=== PATIENT | male | born 1950 | race Hispanic/Latino ===

== ENCOUNTER 2017-01-12 13:23 | Emergency (ER) | payer MEDICARE, MEDICAID ==
--- NOTE | 2017-01-12 14:37 | RAD ---
2 VIEW LEFT FEMUR: Date: 01/12/17 CLINICAL HISTORY: Fall with pain. FINDINGS: No evidence of fracture of the left femur. Knee joint and hip joint not reliably assessed on the bas is of this exam. There is prominent vascular calcification. IMPRESSION: No acute fracture of the left femur. POS: NO[facility]
--- NOTE | 2017-01-12 14:58 | RAD ---
LEFT HIP TWO VIEWS WITH FRONTAL AND LATERAL IMAGING 01/12/2017 HISTORY: Fall. Pain. COMPARISON: None. FINDINGS: The frontal radiograph is nondiagnostic secondary to motion. The frogleg lateral view demonstrates no obvious displaced fracture. The hip joint is not fully assessed on the frogleg lateral view. Th ere is extensive atherosclerotic calcification within the imaged left thigh. IMPRESSION: Markedly limited examination, especially the frontal view. If there is persistent concern for fract ure, the area of clinical concern could be best assessed via CT. POS: NOA
--- NOTE | 2017-01-12 15:01 | RAD ---
FRONTAL RADIOGRAPH PELVIS: DATE: 01/12/17. COMPARISON: None. HISTORY: Fall, pain. FINDINGS: The provided frontal radiograph of the pelvis is technically suboptimal. The pelvic ring and sacroi liac joints are not well assessed. No obvious displaced fracture is seen. Neither hip appears disl ocated. If symptoms persist, CT advised given limitations of this exam. IMPRESSION: Osteopenia. No obvious displaced fracture, but this study is significantly limited and, thus, if sy mptoms persist, CT recommended. POS: NOA
[2017-01-12] MEDS ORDERED: Ondansetron ODT 4 MG TAB ONE (16:57)
== END 2017-01-12 16:30 ==
LOC: MADERS 13:23
DX: S70.02XA Contusion of left hip, initial encounter (principal); F03.90 Unspecified dementia, unspecified severity, without behavioral disturbance, psychotic disturbance, mood disturbance, and anxiety; E11.9 Type 2 diabetes mellitus without complications; I12.0 Hypertensive chronic kidney disease with stage 5 chronic kidney disease or end stage renal disease; N18.6 End stage renal disease; F41.9 Anxiety disorder, unspecified; F32.9 Major depressive disorder, single episode, unspecified; Z79.891 Long term (current) use of opiate analgesic; Z79.899 Other long term (current) drug therapy; W19.XXXA Unspecified fall, initial encounter
CPT/HCPCS: 72170; 96372; J2270; Q0162

== ENCOUNTER 2017-10-23 13:54 | Outpatient (CLI) | payer MEDICARE, MEDICAID ==
[2017-10-23 14:45] LABS: Bilirubin Negative (Negative); Blood, Urine Moderate (Negative); Glucose, Urine (Dipstick) Negative (Negative); Leukocyte Moderate (Negative); Nitrite Negative (Negative); Protein, Urine (Dipstick) > or equal to 300 mg/dL (Neg-Trace); Urobilinogen 0.2 mg/dL (0.2-1.0); pH, Urine 7.5 (5.0-9.0)
[2017-10-23 14:52] LABS: Clarity Hazy (Clear)
[2017-10-23 14:54] LABS: Bacteria/HPF 3+ HPF (None Seen); Squamous Epithelial 0-3 HPF (0-3)
== END 2017-10-23 13:55 | disposition home or self-care (01) ==
LOC: MADLABBHPM 13:54
PROVIDERS: ATTEND Family Medicine
DX: N39.0 Urinary tract infection, site not specified (principal)
CPT/HCPCS: 36415; 81001; 87077; 87086

== ENCOUNTER 2017-12-06 14:52 | Emergency (ER) | payer MEDICARE, MEDICAID ==
--- NOTE | 2017-12-06 16:12 | CT ---
CT ABDOMEN AND PELVIS WITHOUT CONTRAST: Date: 12/06/17 HISTORY: Abdominal pain. Constipation due to opiates. COMPARISON: None. FINDINGS: Lung bases are clear. No pericardial effusion. Dense coronary artery calcifications. No significant pericardial effusion. Dense calcifications of aorta and solid organs and vessels. The kidneys are atrophic. The spleen is relatively unremarkable. No hydroureteronephrosis or nephroureterolithiasis. No signifi cant perinephric stranding. There are multiple too small to characterize hypodensities to both kidney s poorly evaluated without intravenous contrast. Mild paraspinal muscular atrophy. Moderate stool burden throughout the colon. There is motion artifact throughout the pelvis limited ev aluation for the osseous structures. Compression fracture is present at L1 with near complete anterio r height loss. This appears to be chronic. Multiple healing right posterior rib fractures. IMPRESSION: 1. No acute inflammatory process in the abdomen or pelvis. 2. Atrophic kidneys with numerous hypodensities incompletely evaluated. No evidence for calculi or r ecently passed stone. 3. Multiple healing right-sided posterior rib fractures. 4. Old compression deformity of the L1 vertebral body. POS: [facility]
[2017-12-06] MEDS ORDERED: HYDROcodone/Acetaminophen 5/325 mg Tablet ONE (16:16)
== END 2017-12-06 17:25 ==
LOC: MADERS 14:52
DX: K59.00 Constipation, unspecified (principal); M48.46XA Fatigue fracture of vertebra, lumbar region, initial encounter for fracture; E11.22 Type 2 diabetes mellitus with diabetic chronic kidney disease; E03.9 Hypothyroidism, unspecified; F32.9 Major depressive disorder, single episode, unspecified; F41.9 Anxiety disorder, unspecified; F03.90 Unspecified dementia, unspecified severity, without behavioral disturbance, psychotic disturbance, mood disturbance, and anxiety; I12.0 Hypertensive chronic kidney disease with stage 5 chronic kidney disease or end stage renal disease; G47.00 Insomnia, unspecified; N18.6 End stage renal disease; Z99.2 Dependence on renal dialysis; Z86.73 Personal history of transient ischemic attack (TIA), and cerebral infarction without residual deficits; Z79.899 Other long term (current) drug therapy
CPT/HCPCS: 74176

== ENCOUNTER 2018-06-25 13:28 | Outpatient (CLI) | payer MEDICARE, MEDICAID ==
--- NOTE | 2018-06-25 15:46 | CT ---
NONCONTRAST CT ABDOMEN AND PELVIS 06/25/18 HISTORY: Abdominal pain. Patient reports left lower quadrant pain for two days. COMPARISON: 12/06/17. FINDINGS: The small bilateral pleural effusions with associated passive atelectasis. There is mild elevation of the left hemidiaphragm. The heart is mildly enlarged. Vascular calcifications are seen in the visualized coronary arteries wi th dense atherosclerotic vascular calcifications involving the abdominal aorta and iliac arteries wit h prominent vascular calcifications involving the kidneys bilaterally. Calcified granulomas seen within the right hepatic lobe. There are hypodense lesions within each kidney stable from prior study which are difficult to furthe r characterize on this nonenhanced CT scan examination but may be attributable to renal cysts. The ki dneys are small in size bilaterally with renal cortical thinning present. The upper abdomen is limited due to artifact from patient's arms down by the side. The spleen, pancreas, and bilateral adrenal glands demonstrate a grossly normal nonenhanced CT appear ance. The urinary bladder is incompletely distended. While the mensah of the urinary bladder do appear thick ened, this is likely attributable to incomplete distention and is stable from prior study. Prostate gland remains mildly enlarged in transverse dimensions measuring 5.1 cm. There is a large calcification seen within the right hemipelvis measuring 2.2 cm. This was seen in th e left mid abdomen on prior exam. This does not appear to be within the lumen of the bowel. Small bow el is normal in caliber. Multilevel degenerative changes are seen in the spine. There is a stable compression fracture of the L1 vertebral body with increased density material within the vertebral body probably related to prior vertebroplasty changes. There is osteopenia and degenerative changes in the spine. IMPRESSION: 1. Extensive vascular calcifications. 2. Cardiomegaly. 3. Small bilateral pleural effusions. 4. Small bilateral kidneys with suggestion of renal cortical thinning which may be related to me dical renal disease. Hypodense lesions are again seen in each kidney statistically likely representin g small cysts. 5. Enlargement of the prostate gland. 6. [place] of the urinary bladder appear thickened, but this is probably related to incomplete dis tention. 7. There is a large calcification seen in the right hemipelvis. A calcification with similar lorena earance was seen in the left mid abdomen likely accounting for this finding. 8. Remote compression fracture L1 vertebral body with suggestion of vertebroplasty changes. 9. Remote bilateral lower rib fractures. POS: [facility]
== END 2018-06-25 13:29 | disposition home or self-care (01) ==
LOC: MADCT 13:28
PROVIDERS: ATTEND Family Medicine
DX: R10.9 Unspecified abdominal pain (principal); I51.7 Cardiomegaly; J90 Pleural effusion, not elsewhere classified; N27.1 Small kidney, bilateral; N40.0 Benign prostatic hyperplasia without lower urinary tract symptoms; N32.89 Other specified disorders of bladder; I70.8 Atherosclerosis of other arteries; Z87.81 Personal history of (healed) traumatic fracture
CPT/HCPCS: 74176

== ENCOUNTER 2018-12-16 15:47 | Emergency (ER) | payer MEDICARE, MEDICAID ==
[2018-12-16] MEDS ORDERED: HYDROcodone/Acetaminophen 5/325 mg Tablet ONE (19:03)
[2018-12-16] MEDS ORDERED: Acetaminophen 325 MG TAB ONE (19:04)
--- NOTE | 2018-12-16 20:32 | RAD ---
LEFT FOREARM TWO VIEWS: History: Arm pain. FINDINGS: The bones are severely demineralized and there is extensive vascular calcifications noted. There are arthritic changes of the elbow joint. I do not see any definite signs of a fracture. IMPRESSION: No evidence of fracture. POS: [facility]
--- NOTE | 2018-12-16 21:07 | RAD ---
LEFT WRIST THREE VIEWS: History: Pain in wrist. FINDINGS: The patient's hand is held in flexion and these wrist images are limited for evaluation of the carpal bones. The bones are demineralized. There is extensive vascular calcification seen. I do not see any definite signs of fracture of the radius or ulna or any definite fracture of the carpal bones on the lateral view, but the other two projections are basically nondiagnostic for this area. IMPRESSION: Very limited assessment of the carpal bone region and base of the metacarpals on this examination. No signs of any distal radial or ulnar fracture. If there is trauma suspected in the carpal bone region , I would obtain some hand films which would insure better positioning for evaluation of the carpal b ones and base of metacarpals. POS: NOA
== END 2018-12-16 20:48 ==
LOC: MADERS 15:47
DX: M25.532 Pain in left wrist (principal); I12.0 Hypertensive chronic kidney disease with stage 5 chronic kidney disease or end stage renal disease; N18.6 End stage renal disease; Z99.2 Dependence on renal dialysis; Z79.899 Other long term (current) drug therapy; W19.XXXA Unspecified fall, initial encounter

== ENCOUNTER 2018-12-18 14:29 | Emergency (ER) | payer MEDICARE, MEDICAID ==
[~2018-12-18 14:29] MED LIST: Atropine Sulfate 1 mg/10 ml Syringe ONE; Calcium Chloride 1 GM/10 ML Abboject SYRINGE ONE; Dextrose 50% Abboject 50 ML SYRINGE ONE; EPINEPHrine 1 MG/10 ML Abboject SYRINGE ONE; EPINEPHrine 1 MG/ML AMP ONE; Insulin Regular 300 UNITS/3 ML VIAL ONE; Sodium Chloride 0.9% 1,000 ML BAG ONE
[2018-12-18 14:55] LABS: PTT 65.4 SEC (22.9-36.1)
[2018-12-18 15:05] LABS: ALT (SGPT) 2132 U/L (8-55); AST (SGOT) 3462 U/L (5-34); Albumin 3.1 g/dL (3.4-4.8); Alkaline Phosphatase 84 U/L (40-150); Anion Gap 27 mmol/L (10-20); BUN (Urea Nitrogen) 49 mg/dL (8.4-25.7); Bilirubin, Total 0.8 mg/dL (0.2-1.2); Calc. Creatinine Clearance 0 mL/min (70-130); Carbon Dioxide 23 mmol/L (23-31); Chloride 97 mmol/L (98-107); Estimated GFR-MDRD 10; Globulin 2.2 g/dL (2.4-3.5); Protein, Total 5.3 g/dL (5.8-8.1); Prothrombin Time 43.2 SEC (12.0-14.7); Sodium 142 mmol/L (136-145)
[2018-12-18 15:07] LABS: #Basophils 0.1 thou/uL (0.0-0.2); #Lymphocytes 3.5 thou/uL (1.20-3.40); #Monocytes 0.8 thou/uL (0.11-0.59); #Neutrophils 9.8 thou/uL (1.40-6.50); %Basophils 0.7 % (0.0-1.0); %Eosinophils 0.1 % (0.0-10.0); %Lymphocytes 24.5 % (21.0-51.0); %Monocytes 5.9 % (0.0-10.0); %Neutrophils 68.8 % (42.0-75.0); Hemoglobin 8.6 g/dL (14.0-18.0); INR-International Normal Ratio 4.6; Mean Corpuscular HGB CONC 33.1 g/dL (32.0-36.0); Mean Corpuscular Hemoglobin 33.6 pg (27.0-31.0); Mean Corpuscular Volume 101.5 fL (78.0-98.0); Mean Platelet Volume 10.2 fL (7.4-10.4); Platelet Count 74 thou/uL (130-400); Platelet Morphology Comment Appears Decreased; RBC Distribution Width 14.7 % (11.5-14.5); Red Blood Cell (RBC) Count 2.57 mill/uL (4.70-6.10); White Blood Cell (WBC) Count 14.2 thou/uL (4.8-10.8)
[2018-12-18 15:08] LABS: Glucose 41 mg/dL (80-115)
[2018-12-18 15:09] LABS: MDiff Complete? YES
[2018-12-18 15:26] LABS: CKMB 102.9 ng/mL (0-6.6); Troponin I 70.171 ng/mL (< 0.028)
--- NOTE | 2018-12-18 15:33 | RAD ---
PORTABLE CHEST: HISTORY: CPR in progress. Dialysis patient. COMPARISON: A 03/30/2016 exam. FINDINGS: Endotracheal tube is in satisfactory position. Heart size is enlarged. Pulmonary vessels are engorg ed with perihilar markings compatible with pulmonary edema-type change. The bones are demineralized. A stent is seen in the left arm. IMPRESSION: 1. Cardiomegaly with moderate pulmonary edema-type changes. 2. Endotracheal tube in satisfactory position. POS: [facility]
== END 2018-12-18 17:10 | disposition expired ==
LOC: MADERS 14:29
DX: I46.9 Cardiac arrest, cause unspecified (principal); I12.0 Hypertensive chronic kidney disease with stage 5 chronic kidney disease or end stage renal disease; N18.6 End stage renal disease; Z99.2 Dependence on renal dialysis; F03.90 Unspecified dementia, unspecified severity, without behavioral disturbance, psychotic disturbance, mood disturbance, and anxiety; G47.00 Insomnia, unspecified; K21.9 Gastro-esophageal reflux disease without esophagitis; E11.22 Type 2 diabetes mellitus with diabetic chronic kidney disease; Z79.899 Other long term (current) drug therapy
CPT/HCPCS: 71045; 80053; 82553; 83880; 84484; 85025; 85610; 85730; 93005; 94760; 96365; 96375; 96376; J0171; J0461; J1815; J7050; J7070